=== PATIENT | female | born 1995 | race Caucasian/White ===

== ENCOUNTER 2018-08-12 15:43 | Emergency (ER) | payer OTHER ==
[~2018-08-12] VITALS: Ht 170.2 cm; Wt 86.2 kg
[~2018-08-12 15:43] MED LIST: DEPO; FIORICET 50-321 EACH PO; NOHOMEMEDICATIONS; PRENATAL; TRAMADOL 50 MG50 MG PO
[2018-08-12] MEDS ORDERED: CYMBALTA20 MG PO (15:54)
[2018-08-12] MEDS ORDERED: BUSPIRONE HCL10 MG PO (15:54)
[2018-08-12] MEDS ORDERED: ROBAXIN500 MG PO (16:48)
[2018-08-12] MEDS ORDERED: MEDROLDOSEPACK PO (16:48)
[2018-08-12 16:56] VITALS: BP 132/80
== END 2018-08-12 16:56 | disposition home or self-care (01) ==
LOC: M.ERS 15:43
DX: M94.0 Chondrocostal junction syndrome [Tietze] (principal); G43.909 Migraine, unspecified, not intractable, without status migrainosus; Z90.49 Acquired absence of other specified parts of digestive tract; Z88.2 Allergy status to sulfonamides

== ENCOUNTER 2019-03-20 21:15 | Emergency (ER) | payer OTHER ==
[~2019-03-20] VITALS: Ht 170.2 cm; Wt 90.7 kg
[~2019-03-20 21:15] MED LIST changes: +BUSPIRONE HCL10 MG PO; +CYMBALTA20 MG PO; +MEDROLDOSEPACK PO; +ROBAXIN500 MG PO
[2019-03-20] MEDS ORDERED: AUGMENTIN 875-1 EACH PO (21:41)
[2019-03-20 21:47] VITALS: BP 132/91
== END 2019-03-20 21:47 | disposition home or self-care (01) ==
LOC: M.ERS 21:15
DX: J06.9 Acute upper respiratory infection, unspecified (principal); H66.91 Otitis media, unspecified, right ear; G43.909 Migraine, unspecified, not intractable, without status migrainosus; Z90.49 Acquired absence of other specified parts of digestive tract; Z98.890 Other specified postprocedural states; Z88.2 Allergy status to sulfonamides

== ENCOUNTER 2019-06-14 14:58 | Emergency (ER) | payer OTHER ==
[~2019-06-14] VITALS: Ht 170.2 cm; Wt 90.7 kg
[~2019-06-14 14:58] MED LIST changes: +AUGMENTIN 875-1 EACH PO
[2019-06-14 15:26] VITALS: BP 121/85
[2019-06-14] MEDS ORDERED: LIDOCAINE VISC100 ML SWISH&SPIT (15:41)
[2019-06-14] MEDS ORDERED: AMOXICILLIN 50500 MG PO (15:41)
[2019-06-14] MEDS ORDERED: ACETAMINOPHEN-1 EAC1 PO (15:41)
== END 2019-06-14 15:48 | disposition home or self-care (01) ==
LOC: M.ERS 14:58
DX: K08.89 Other specified disorders of teeth and supporting structures (principal); G43.909 Migraine, unspecified, not intractable, without status migrainosus; Z88.2 Allergy status to sulfonamides; Z90.89 Acquired absence of other organs; Z90.49 Acquired absence of other specified parts of digestive tract

== ENCOUNTER 2019-10-08 07:52 | Emergency (ER) | payer OTHER ==
[~2019-10-08] VITALS: Ht 170.2 cm; Wt 84.4 kg
[~2019-10-08 07:52] MED LIST changes: +ACETAMINOPHEN-1 EAC1 PO; +AMOXICILLIN 50500 MG PO; +LIDOCAINE VISC100 ML SWISH&SPIT
[2019-10-08 08:00] VITALS: BP 125/81
[2019-10-08] MEDS ORDERED: MINIPRESS2 MG PO (08:04)
[2019-10-08] MEDS ORDERED: FLEXERIL PO (08:28)
== END 2019-10-08 08:41 | disposition home or self-care (01) ==
LOC: M.ERS 07:52
DX: S16.1XXA Strain of muscle, fascia and tendon at neck level, initial encounter (principal); M79.7 Fibromyalgia; G43.909 Migraine, unspecified, not intractable, without status migrainosus; Z90.49 Acquired absence of other specified parts of digestive tract; Z88.2 Allergy status to sulfonamides; Z90.89 Acquired absence of other organs; X58.XXXA Exposure to other specified factors, initial encounter; Y93.89 Activity, other specified; Y92.89 Other specified places as the place of occurrence of the external cause; Y99.8 Other external cause status

== ENCOUNTER 2019-11-08 17:56 | Emergency (ER) | payer OTHER ==
[~2019-11-08] VITALS: Ht 170.2 cm; Wt 88.9 kg
[~2019-11-08 17:56] MED LIST changes: +FLEXERIL PO; +MINIPRESS2 MG PO
[2019-11-08 18:33] LABS: URINE BILIRUBIN NEGATIVE (Negative); URINE BLOOD 3+ (Negative); URINE CLARITY CLEAR; URINE COLOR YELLOW; URINE GLUCOSE-RANDOM NEGATIVE (Negative); URINE KETONES NEGATIVE (Negative); URINE LEUKOCYTES-REFLEX NEGATIVE (Negative); URINE NITRITE-REFLEX NEGATIVE (Negative); URINE PROTEIN NEGATIVE (Negative); URINE SPECIFIC GRAVITY >= 1.030 (1.005-1.030); URINE UROBILINOGEN 0.2 E.U./dl (0.2-1.0)
[2019-11-08 18:38] LABS: SQUAMOUS 0-3 Few /LPF (0-3); URINE RBC 0-2 Rare /HPF (0-2); URINE WBC-REFLEX 0-5 Rare /HPF (0-5)
[2019-11-08 18:39] LABS: BACTERIA-REFLEX 1-9 Few /HPF (None Seen); CASTS None Seen /LPF (None Seen); CRYSTALS None Seen /LPF (None Seen); MUCUS >6 Heavy strn/LPF (None Seen)
[2019-11-08 19:24] LABS: ABSOLUTE BASOPHILS 0.1 thou/uL (0.0-0.2); ABSOLUTE EOSINOPHILS 0.2 thou/uL (0.0-0.7); ABSOLUTE LYMPHOCYTES 2.6 thou/uL (0.8-5.3); ABSOLUTE MONOCYTES 0.7 thou/uL (0.0-1.2); ABSOLUTE NEUTROPHILS 9.1 thou/uL (1.6-8.1); BASOPHILS 0.6 %; EOSINOPHILS 1.7 %; HEMATOCRIT 41.3 % (37.0-47.0); HEMOGLOBIN 14.3 gm/dL (12.0-15.0); LYMPHOCYTES 20.2 %; MCH 28.6 pg (26.0-34.0); MCHC 34.6 g/dL (28.0-37.0); MCV 82.5 fL (80.0-100.0); MONOCYTES 5.9 %; MPV 7.4 fl. (7.2-11.1); NUCLEATED RBCS 0 /100WBC; PLATELET COUNT* 351 thou/uL (150-400); POLYS 71.6 %; WBC 12.7 thou/uL (4.0-11.0)
[2019-11-08] MEDS ORDERED: KEFLEX500 M1 PO (19:28)
[2019-11-08 19:38] VITALS: BP 128/78
== END 2019-11-08 19:38 | disposition home or self-care (01) ==
LOC: M.ERS 17:56
PROVIDERS: Nurse Practitioner Psychiatric/Mental Health
DX: D72.829 Elevated white blood cell count, unspecified (principal); N93.9 Abnormal uterine and vaginal bleeding, unspecified; M79.7 Fibromyalgia; F32.9 Major depressive disorder, single episode, unspecified; F41.9 Anxiety disorder, unspecified; G43.909 Migraine, unspecified, not intractable, without status migrainosus; Z90.89 Acquired absence of other organs; Z90.49 Acquired absence of other specified parts of digestive tract; Z88.2 Allergy status to sulfonamides